=== PATIENT | female | born 1970 | race Two or more races ===

== ENCOUNTER → 2019-08-10 | Outpatient (CLI) | payer OTHER ==
--- NOTE | 2019-08-10 18:08 | Diagnostic Imaging Report ---
EXAM: Transabdominal and Transvaginal Pelvic Ultrasound INDICATION: ^UTERINE LEIOMYOMA COMPARISON: None TECHNIQUE: Grayscale transverse and sagittal transabdominal and transvaginal images were obtained of the pelvis. Transvaginal imaging was medically necessary to better evaluate the endometrium and the adnexa. CLINICAL HISTORY: 49 year old A0; last menstrual period: 07/24/2019. FINDINGS: Uterus Orientation: Normal Size: 13.2 x 7.7 x 12.2 cm, enlarged and heterogeneous Mass: 7.1 x 7.2 x 7.7 cm subserosal hypoechoic lesion likely due to a fibroid. 3.5 x 3.4 x 3.0 cm right intramural hypoechoic lesion likely due to a fibroid. 2.4 x 2.2 x 1.9 cm left intramural hypoechoic lesion likely due to a fibroid. 2.6 x 2.4 x 2.9 cm left intramural hypoechoic lesion likely due to a fibroid. Cervix: Nabothian cysts. Endometrium: Thickness: 0.4 cm, Normal. Appearance: Homogeneous echotexture without focal thickening. Right ovary: Size: 2.3 x 2.5 x 2.1 cm Mass/Cyst: None Left ovary: Not seen Adnexa: Normal Cul-de-sac: No free fluid IMPRESSION: Enlarged heterogeneous uterus containing what appear to be numerous fibroids as described above. Cervical Nabothian cysts. The left ovary is not seen due to overlying bowel gas. Signed by: Dr. Diomedes Villegas M.D. on 08/10/2019 6:04 PM
== END ==
LOC: US 16:23
PROVIDERS: ATTEND Obstetrics & Gynecology Obstetrics
DX: D25.9 Leiomyoma of uterus, unspecified (principal)
CPT/HCPCS: 76830; 76856

== ENCOUNTER → 2019-11-17 | Outpatient (CLI) | payer OTHER ==
--- NOTE | 2019-12-01 09:11 | Diagnostic Imaging Report ---
#[id number] - MGSCRBIL #BILATERAL DIGITAL SCREENING MAMMOGRAM WITH CAD: 11/17/2019 Comparison is made to exams dated: 03/29/2016 mammogram, 03/10/2016 mammogram and 12/10/2013 mammogram - [facility]. The tissue of both breasts is heterogeneously dense. This may lower the sensitivity of mammography. Current study was also evaluated with a Computer Aided Detection (CAD) system. There are benign lymph nodes in both breasts. No significant masses, calcifications, or other findings are seen in either breast. There has been no significant interval change. IMPRESSION: BENIGN There is no mammographic evidence of malignancy. A 1 year screening mammogram is recommended. The patient will be notified by letter of the results. MICHAEL macias/dinora:11/30/2019 15:34:25 Training Director: Nina LEW(R)(M), [facility] letter sent: Compared to Prior B9 Mammogram BI-RADS: 2 Benign
== END ==
LOC: MAMMO 08:26
PROVIDERS: ATTEND Obstetrics & Gynecology Obstetrics
DX: Z12.31 Encounter for screening mammogram for malignant neoplasm of breast (principal)
CPT/HCPCS: 77067

== ENCOUNTER → 2020-09-16 | Day surgery (SDC) | payer OTHER ==
[~2020-09-16] MED LIST: ATORVASTATIN CA10 MG PO; GLUCAGON FOR INJ 1 MG VIAL ONE; HYOSCYAMINE 0.125 MG TAB ONE; LIDOCAINE HCL 2% LOCAL INJ 5 ML SDV VIAL INJ ONE; LOSARTAN-HCTZ1 EACH; METFORMIN HCL500 MG PO; MIDAZOLAM HCL 2 MG/2 ML VIAL ONE; PHENYLEPHRINE HCL 1% 10 MG/ML VIAL ONE; PROPOFOL IV EMULSION 10 MG/ML 20 ML VIAL ONE
[2020-09-16 14:30] VITALS: BP 130/80
[2020-09-16 15:20] LABS: WBC,FECAL (FECAL LACTOFERRIN) NEGATIVE (NEGATIVE)
[2020-09-17 11:33] LABS: C DIFFICILE TOXIN A&B AMP PROB NEGATIVE (NEGATIVE)
== END | disposition home or self-care (01) ==
LOC: OR 09:55
PROVIDERS: ATTEND Internal Medicine Gastroenterology
DX: K52.9 Noninfective gastroenteritis and colitis, unspecified (principal); K63.5 Polyp of colon; K62.1 Rectal polyp; K64.8 Other hemorrhoids; D64.89 Other specified anemias; R12 Heartburn; R10.9 Unspecified abdominal pain; R14.0 Abdominal distension (gaseous); G47.33 Obstructive sleep apnea (adult) (pediatric); I10 Essential (primary) hypertension; E11.9 Type 2 diabetes mellitus without complications; Z01.810 Encounter for preprocedural cardiovascular examination; Z01.812 Encounter for preprocedural laboratory examination; Z11.59 Encounter for screening for other viral diseases; Z79.84 Long term (current) use of oral hypoglycemic drugs; Z68.28 Body mass index [BMI] 28.0-28.9, adult
CPT/HCPCS: 36415; 45380; 45384; 81025; 82948; 83630; 83993; 87045; 87177; 87328; 87493; 93005; J1610; J2001; J2250; J2370; J2704; U0002; 45378

== ENCOUNTER → 2025-07-07 | Outpatient (REF) | payer OTHER ==
[~2025-07-07] MED LIST changes: -GLUCAGON FOR INJ 1 MG VIAL ONE; -HYOSCYAMINE 0.125 MG TAB ONE; -LIDOCAINE HCL 2% LOCAL INJ 5 ML SDV VIAL INJ ONE; -MIDAZOLAM HCL 2 MG/2 ML VIAL ONE; -PHENYLEPHRINE HCL 1% 10 MG/ML VIAL ONE; -PROPOFOL IV EMULSION 10 MG/ML 20 ML VIAL ONE
== END ==
LOC: CT 16:17
PROVIDERS: ATTEND Family Medicine
DX: R07.9 Chest pain, unspecified (principal); I10 Essential (primary) hypertension
CPT/HCPCS: 75571